=== PATIENT | male | born 1995 | race Caucasian/White ===

== ENCOUNTER 2019-06-13 14:31 | Outpatient (CLI) | payer MEDICAID | END 2019-06-13 14:32 | disposition critical access hospital (66) | LOC: EMS 14:31 | PROVIDERS: ATTEND Surgery | DX: R40.20 Unspecified coma (principal); Z59.0 Homelessness | CPT/HCPCS: A0425; A0427; A0999 ==

== ENCOUNTER 2019-06-13 15:03 | Emergency (ER) | payer MEDICAID ==
[2019-06-13] MEDS ORDERED: NALOXONE 0.4 MG/ML VIAL IVP STA (15:20)
--- NOTE | 2019-06-13 15:35 | ED Physician Documentation ---
History of Present Illness - Stated complaint Stated Complaint: UNRESPONSIVE - Chief complaint Chief Complaint: Critical Care - Additonal information Additional information: This is a 23-year-old male who presents via EMS due to being found unresponsive. He reportedly was found sleeping on somone's porch and was told to leave, so he walked around in the driveway and fell asleep. In the morning he reportedly was still sleeping at 3 PM, So someone went to arouse him and found him unresponsive. EMS reports pinpoint pupils but he did not respond to 2 mg of Narcan. He felt cold EMS, his temperature was 35.9 on arrival here. He has been unresponsive with normal spontaneous breathing since EMS found him Review of Systems Unable to obtain: Unresponsive PD PAST MEDICAL HISTORY - Past Surgical History Other past surgical history: Unable to obtain due to mental status PD ED PE NORMAL - General General: Other (Unconscious, breathing spontaneously. With a deep sternal rub patient moves his head slightly but makes no other response. b) - HEENT HEENT: Atraumatic - Neck Neck: No bony TTP (No crepitus, step offs) - Cardiac Cardiac: RRR - Respiratory Respiratory: No respiratory distress, Clear bilaterally - Abdomen Abdomen: Soft, Non tender, Non distended - Male Male : Other (Normal-appearing external genitalia) - Back Back: No spinal TTP, Other (No signs of trauma) - Derm Derm: Other (Cool extremities, but atraumatic, and with good peripheral pulses) - Neuro Neuro: Other (Patient initially does not respond to painful stimuli beyond moving his head forward. His pupils are 2 mm and reactive bilaterally. He is breathing spontaneously without issue, and manages his secretions. During my evaluation he begins to spontaneously move his extremities, and becomes responsive to pain.) Results - Vitals Vitals: Oxygen O2 Source Room air - EKG (time done) 15:27 Other comments: Other comments (Rate 77, rhythm sinus, there is ST segment elevation or depression. There is poor R wave progression. And borderline left axis deviation. QTc 442) - Labs Labs: Laboratory Tests 06/13/19 06/13/19 15:39 16:50 Sodium 144 Potassium 3.7 Chloride 103 Carbon Dioxide 29 Anion Gap 12.0 BUN 14 Creatinine 0.7 Estimated GFR (MDRD) 137 Glucose 106 H Calcium 8.4 L Urine Color YELLOW Urine Clarity CLEAR Urine pH 5.5 Ur Specific [place] <=1.005 Urine Protein 30 H Urine Glucose (UA) NEGATIVE Urine Ketones NEGATIVE Urine Occult Blood SMALL H Urine Nitrite NEGATIVE Urine Bilirubin NEGATIVE Urine Urobilinogen 0.2 (NORMAL) Ur Leukocyte Esterase NEGATIVE Urine RBC 0-5 Urine WBC 0-3 Ur Squamous Epith Cells RARE Squamous Amorphous Sediment Rare Urine Bacteria Rare Ur Microscopic Review INDICATED Urine Culture Comments NOT INDICATED Salicylates < 6.0 Urine Opiates Screen NEGATIVE Ur Oxycodone Screen NEGATIVE Urine Methadone Screen NEGATIVE Ur Propoxyphene Screen NEGATIVE Acetaminophen < 10 L Ur Barbiturates Screen NEGATIVE Ur Tricyclics Screen NEGATIVE Ur Phencyclidine Scrn NEGATIVE Ur Amphetamine Screen NEGATIVE U Methamphetamines Scrn NEGATIVE U Benzodiazepines Scrn NEGATIVE Urine Cocaine Screen NEGATIVE U Cannabinoids Screen NEGATIVE Ethyl Alcohol 548.3 H* PD MEDICAL DECISION MAKING - ED course Complexity details: considered differential (Head trauma, intoxication, hypothermia, drug use, opiate overdose, electrolyte abnormality) ED course: On arrival patient is unresponsive but he is breathing well with normal pulse and unremarkable vital signs. He has no obvious signs of external trauma on him. He is barely responsive to painful stimuli, but over the course of our evaluation he becomes more responsive and moves his extremities and respond to painful stimuli. Given his rapidly improving neurologic exam he was monitored carefully and did not seem to require intubation as he was managing his own secretions. He subsequently at 1530 began to wake up he sat up and had a slurred speech was able to say his name and follow commands. He is moving all his extremities. He has alcohol on his breath. His cranial nerves are normal. Labs are notable for alcohol level of 540. There is no history to suggest suicidal ideation BMP is unremarkable. and salicylates were drawn and negative. On repeat examinations his mental status continues to improve he is nonfocal, moving all extremities, pupils equal round reactive to light, again he has no signs of trauma or history of trauma, Making intracranial hemorrhage highly unlikely. At the end of my shift patient was signed out to Dr. Madrigal the plan to reexamine patient for clinical sobriety, and once he is clinically sober to dis cuss with him the reasons for his drinking and to ensure he does not have suicidal ideation. Patient is well-appearing resting in bed at the time of signout Departure - Departure Disposition: 01 Home, Self Care Clinical Impression: Alcohol intoxication Qualifiers: Complication of substance-induced condition: with unspecified complication Qualified Code(s): F10.929 - Alcohol use, unspecified with intoxication, unspecified Condition: Good Instructions: ED Alcohol Intoxication Comments: You were seen today because you were highly intoxicated. This was to the point that it could have been life-threatening. Please abstain from alcohol as it is causing you great harm. Please follow up with your PCP provider as soon as possible on this, and return to the ED with any new or worsening symptoms. Discharge Date/Time: 06/14/19 04:25
[2019-06-13 15:47] LABS: MUDS CUTOFF CONCENTRATIONS CUTOFF CONC BELOW:
[2019-06-13 15:51] LABS: BILIRUBIN,URINE NEGATIVE (NEGATIVE); CLARITY,URINE CLEAR (CLEAR); GLUCOSE, URINE (UA) NEGATIVE (NEGATIVE); KETONES,URINE (UA) NEGATIVE (NEGATIVE); LEUKOCYTE ESTERASE, URINE NEGATIVE (NEGATIVE); NITRITE,URINE NEGATIVE (NEGATIVE); OCCULT BLOOD,URINE SMALL (NEGATIVE); PH,URINE 5.5 PH (5.0-7.5); PROTEIN,URINE 30 mg/dL (NEGATIVE); UROBILINOGEN,URINE 0.2 (NORMAL) E.U./dL (NORMAL)
[2019-06-13 16:00] LABS: AMORPHOUS SEDIMENT,UR Rare /LPF; AMPHETAMINE SCREEN,URINE NEGATIVE (NEGATIVE); BACTERIA,URINE Rare /HPF (None Seen); BENZODIAZEPINES SCREEN, URINE NEGATIVE (NEGATIVE); COCAINE SCREEN URINE NEGATIVE (NEGATIVE); METHADONE SCREEN, URINE NEGATIVE (NEGATIVE); METHAMPHETAMINES SCREEN, URINE NEGATIVE (NEGATIVE); OPIATE SCREEN, URINE NEGATIVE (NEGATIVE); OXYCODONE SCREEN, URINE NEGATIVE (NEGATIVE); PROPOXYPHENE SCREEN, URINE NEGATIVE (NEGATIVE); RBC,URINE 0-5 /HPF (0-5); SQUAMOUS EPITHELIAL CELL,UR RARE Squamous (<= Few); TRICYCLIC ANTIDEPRESSANT,URINE NEGATIVE (NEGATIVE)
[2019-06-13 17:08] LABS: BUN - BLOOD UREA NITROGEN 14 mg/dL (6-20); CALCIUM 8.4 mg/dL (8.5-10.3); CARBON DIOXIDE - CO2 29 mmol/L (21-32); CHLORIDE 103 mmol/L (101-111); CREATININE 0.7 mg/dL (0.6-1.2); GFR - MDRD 137 (>89); GLUCOSE 106 mg/dL (70-100); SODIUM 144 mmol/L (135-145)
[2019-06-13 17:17] LABS: ACETAMINOPHEN < 10 ug/mL (10-30); SALICYLATE < 6.0 mg/dL
[2019-06-13] MEDS ORDERED: LACTATED RINGERS 1,000 ML IV STA (19:21)
[2019-06-14 03:49] VITALS: BP 143/89
== END 2019-06-14 04:25 | disposition home or self-care (01) ==
LOC: EDUNIT# → ED 15:03
DX: F10.929 Alcohol use, unspecified with intoxication, unspecified (principal); Y90.8 Blood alcohol level of 240 mg/100 ml or more; R40.2441 Other coma, without documented Glasgow coma scale score, or with partial score reported, in the field [EMT or ambulance]
CPT/HCPCS: 36415; 80048; 80306; 80307; 80320; 80329; 81001; 93005; 96360; 99281; 99284; J7120; 80053; 81003; 82550; 82803; 83605; 83690; 84443; 84484; 85025; 87086

== ENCOUNTER 2020-12-06 11:33 | Emergency (ER) | payer MEDICAID ==
[2020-12-06] MEDS ORDERED: BACITRACIN ZINC OINT 1 PACKET TOP STA (12:01)
--- NOTE | 2020-12-06 12:03 | ED Physician Documentation ---
History of Present Illness - Stated complaint Stated Complaint: R KNEE LAC - Chief complaint Chief Complaint: Laceration - History obtained from History obtained from: Patient - Additonal information Additional information: 24-year-old male presents with laceration above right knee from a wood solar [employer] practitioner today. tdap updated recently per his report. able to bear weight and move knee without pain. Review of Systems Skin: reports: Laceration (s) Musculoskeletal: denies: Joint pain Neurologic: denies: Focal weakness, Numbness PD PAST MEDICAL HISTORY - Past Medical History Past Medical History: No - Past Surgical History Past Surgical History: No - Present Medications Home Medications: Ambulatory Orders Medication Instructions Recorded Confirmed No Known Home Medications 12/06/20 - Allergies Allergies/Adverse Reactions: Allergies Allergy/AdvReac Type Severity Reaction Status Date / Time No Known Drug Allergies Allergy Verified 12/06/20 11:42 - Social History Does the pt smoke?: Yes Smoking Status: Current every day smoker Does the pt drink ETOH?: No Does the pt have substance abuse?: No - Immunizations Immunizations are current?: Yes PD ED PE NORMAL - Vitals Vital signs reviewed: Yes - General General: Alert and oriented X 3, No acute distress, Well developed/nourished - HEENT HEENT: Atraumatic, PERRL, EOMI - Derm Derm: Normal color - Extremities Extremities: No deformity, Normal ROM s pain, Other (ambulatory without difficulty. 2+ distal pulse RLE. normal cap refill, strength, sensation. Lac is 4cm above the patella, traversing horizontally 3cm width without joint involvement.) - Neuro Neuro: No motor deficit, No sensory deficit Results - Vitals Vitals: Vital Signs - 24 hr 12/06/20 12/06/20 11:39 12:42 Temperature 36.5 C 37.2 C Heart Rate 63 76 Respiratory 16 12 Rate Blood Pressure 138/65 H 132/81 H O2 Saturation 99 100 Oxygen O2 Source Room air Procedures - Laceration (location) Lower extremity right Length in cm: 3 Wound type: Linear, Into subcut fat Neurovascular status: Sensory intact, Motor intact, Vascular intact Tendon involvement: Tendon intact Anesthesia: Lidocaine 1% with epi Wound preparation: Irrigated copiously NS Deep layer closure: Vicryl, size #-0 - enter number (3), # sutures - enter number (1) Skin layer closure: Nylon (5) Other: Patient tolerated well, No complications, Dressing applied, Tetanus UTD Departure - Departure Disposition: 01 Home, Self Care Clinical Impression: Laceration of knee Condition: Good Instructions: ED Laceration All Comments: You are seen in the emergency department for laceration above the knee. After numbing it, I explored to the base and there is no joint involvement. We cleaned it thoroughly then applied 5 stitches. Please monitor carefully for any signs of infection and if you have any concerns, definitely return immediately for wound check. You should have the stitches taken out in 14 days. Follow-up with your primary doctor, urgent care or here for suture removal.
[2020-12-06 12:43] VITALS: BP 132/81
== END 2020-12-06 12:45 | disposition home or self-care (01) ==
LOC: ED 11:33
DX: S81.011A Laceration without foreign body, right knee, initial encounter (principal); W27.0XXA Contact with workbench tool, initial encounter; Y93.H3 Activity, building and construction; F17.200 Nicotine dependence, unspecified, uncomplicated
CPT/HCPCS: 12002; 99282; A9270

== ENCOUNTER 2023-04-13 11:57 | Outpatient (CLI) | payer MEDICAID ==
--- NOTE | 2023-04-13 16:21 | Ultrasound Report ---
PROCEDURE: Head or Neck Soft Tissue INDICATIONS: THYROMEGALY TECHNIQUE: Real-time scanning was performed of the thyroid gland, with image documentation. COMPARISON: None FINDINGS: Right: Thyroid lobe measures 5.2 x 2.1 x 1.9 cm, and is heterogeneous in echotexture. Left: Thyroid lobe measures 5.8 x 1.9 x 2.1 cm, and is heterogeneous in echotexture. Isthmus: 6 mm thick. No discrete nodule identified. IMPRESSION: Heterogeneous thyroid, consistent with thyroiditis. No discrete nodule. ACR TI-RADS definitions and recommendations: TI-RADS 1 (benign): 0 points. FNA not needed. TI-RADS 2 (not suspicious): 2 points. FNA not needed. TI-RADS 3 (mildly suspicious): 3 points. "FNA if 2.5 cm or larger, follow up if 1.5 cm or larger (at 1, 3, and 5 years). TI-RADS 4 (moderately suspicious): 4-6 points. "FNA if 1.5 cm or larger, follow up if 1 cm or larger (at 1, 2, 3, and 5 years). TI-RADS 5 (highly suspicious): 7 points or more. "FNA if 1 cm or larger, follow up if 0.5 cm or larger (every year for 5 years). Reviewed by: Lokesh White on 04/13/2023 4:20 PM PDT Approved by: Lokesh White on 04/13/2023 4:20 PM PDT Station ID: [id number]
== END 2023-04-13 11:58 | disposition home or self-care (01) ==
LOC: DI 11:57
PROVIDERS: ATTEND Physician Assistant Medical
DX: E04.9 Nontoxic goiter, unspecified (principal)

== ENCOUNTER 2023-05-24 10:11 | Outpatient (CLI) | payer MEDICAID ==
[2023-05-24 15:23] LABS: FERRITIN 155.6 ng/mL (23.9-336.2)
[2023-05-24 15:41] LABS: MAGNESIUM 1.7 mg/dL (1.7-2.3)
--- NOTE | 2023-05-24 15:42 | XRAY Report ---
PROCEDURE: Foot 3 View RT INDICATIONS: PLANTAR FASCITIS RT TECHNIQUE: 3 views of the foot were acquired. COMPARISON: None. FINDINGS: Bones: No fractures or dislocations. Normal alignment on nonweightbearing view. Joint spaces are ma intained. No suspicious bony lesions. Soft tissues: No suspicious soft tissue calcifications or masses. IMPRESSION: No acute bony abnormality. Reviewed by: Miles Segovia MD on 05/24/2023 3:40 PM PST Approved by: Miles Segovia MD on 05/24/2023 3:40 PM PST Station ID: [id number]
== END 2023-05-24 10:12 | disposition home or self-care (01) ==
LOC: DI.S 10:11
PROVIDERS: ATTEND Physician Assistant Medical
DX: M72.2 Plantar fascial fibromatosis (principal); F10.11 Alcohol abuse, in remission
CPT/HCPCS: 36415; 82306; 82607; 82728; 82746; 83540; 83735; 84466; 84630

== ENCOUNTER 2023-06-01 11:33 | Outpatient (CLI) | payer MEDICAID ==
[2023-06-01 11:49] LABS: BASOPHILS % (AUTO) 1.2 %; EOSINOPHILS # (AUTO) 0.1 10^3/uL (0.0-0.7); EOSINOPHILS % (AUTO) 3.9 %; HCT - HEMATOCRIT 40.6 % (42.0-52.0); HGB - HEMOGLOBIN 13.8 g/dL (14.0-18.0); LYMPHOCYTES # (AUTO) 1.5 10^3/uL (1.5-3.5); LYMPHOCYTES % (AUTO) 43.3 %; MEAN CORPUSCULAR HEMOGLOBIN 31.2 pg (27.0-31.0); MEAN CORPUSCULAR VOLUME 91.6 fL (80.0-94.0); MEAN PLATELET VOLUME 10.4 fL (7.4-11.4); MONOCYTES # (AUTO) 0.3 10^3/uL (0.0-1.0); MONOCYTES % (AUTO) 9.2 %; NEUTROPHILS # (AUTO) 1.4 10^3/uL (1.5-6.6); NEUTROPHILS % (AUTO) 42.4 %; PLT - PLATELET COUNT 175 10^3/uL (130-450); RED BLOOD COUNT 4.43 10^6/uL (4.70-6.10); RED CELL DISTRIBUTION WIDTH 12.5 % (12.0-15.0); WHITE BLOOD COUNT 3.4 x10^3/uL (4.8-10.8)
[2023-06-01 12:06] LABS: ALBUMIN 4.9 g/dL (3.2-5.5); ALBUMIN/GLOBULIN RATIO 1.8 (1.0-2.2); ALKALINE PHOSPHATASE 54 IU/L (42-121); ALT ALANINE AMINOTRANSFERASE 25 IU/L (10-60); AST ASPARTATE AMINOTRANSFERASE 16 IU/L (10-42); BILIRUBIN,TOTAL 1.4 mg/dL (0.2-1.0); BUN - BLOOD UREA NITROGEN 15 mg/dL (6-20); CALCIUM 9.6 mg/dL (8.5-10.3); CARBON DIOXIDE - CO2 30 mmol/L (21-32); CHLORIDE 102 mmol/L (101-111); CHOL/HDL RATIO 4.7 (<5.0); CHOLESTEROL 264 mg/dL; CREATININE 0.9 mg/dL (0.6-1.3); CRP - C-REACTIVE PROTEIN < 0.5 mg/dL (<0.5); GFR - MDRD 100 (>89); GLUCOSE 92 mg/dL (74-104); HDL CHOLESTEROL 56 mg/dL; LDL CHOLESTEROL,CALCULATED 193 mg/dL; LDL/HDL RATIO 3.4 (<3.6); POTASSIUM 4.2 mmol/L (3.5-4.5); SODIUM 137 mmol/L (135-145); TOTAL PROTEIN 7.6 g/dL (6.4-8.9); TRIGLYCERIDES 75 mg/dL (48-352); URIC ACID 4.8 mg/dL (4.4-7.6); VLDL CHOLESTEROL 15 mg/dL
[2023-06-01 14:22] LABS: RHEUMATOID FACTOR NEGATIVE (Negative)
[2023-06-01 14:32] LABS: THYROID STIMULATING HORMONE 10.73 uIU/mL (0.34-5.60)
[2023-06-02 18:08] LABS: ANTI-DNA (DS) AB QN <1 IU/mL (0-9)
[2023-06-02 20:07] LABS: THYROGLOBULIN ANTIBODY 12.9 IU/mL (0.0-0.9); THYROID PEROXIDASE (TPO) AB >600 IU/mL (0-34)
[2023-06-03 14:08] LABS: CYCLIC CITRULLINATED PEP IGG/A 5 units (0-19)
[2023-06-04 17:08] LABS: ANTINUCLEAR ANTIBODIES IFA Negative (.)
== END 2023-06-01 11:34 | disposition home or self-care (01) ==
LOC: LAB 11:33
PROVIDERS: ATTEND Physician Assistant Medical
DX: Z00.00 Encounter for general adult medical examination without abnormal findings (principal); F10.11 Alcohol abuse, in remission; E01.0 Iodine-deficiency related diffuse (endemic) goiter; M25.50 Pain in unspecified joint; E06.9 Thyroiditis, unspecified
CPT/HCPCS: 36415; 80053; 80061; 83721; 84439; 84443; 84550; 85025; 85651; 86038; 86140; 86200; 86225; 86376; 86430; 86800